=== PATIENT | female | born 1970 | race Caucasian/White ===

== ENCOUNTER 2016-12-03 08:04 | Outpatient (CLI) ==
--- NOTE | 2016-12-03 13:54 | MRI ---
EXAM: Cervical spine MRI without contrast. HISTORY: Neck pain. COMPARISON: Cervical spine radiographs 12/17/2010. TECHNIQUE: Multiplanar, multisequence MR images were acquired of the cervical spine without contras t. FINDINGS: The cerebellar tonsils extend to the foramen magnum without overt ectopia. The cervical cord has normal signal intensity. There is minor mid cervical levoscoliosis centered at C5-[address] raightening of the usual cervical lordosis. The cervical vertebra are normal in height and intrinsi c bone marrow signal. There is ventral spondylosis at C4-5 and C5-6. There is a small polyp arisin g from the posterior right inferior turbinate. The visualized maxillary sinuses and sphenoid sinus are unremarkable. There are no paravertebral masses. Visualized lung apices are clear. C2-3: The intervertebral disc is normal. C3-4: The intervertebral disc is normal. C4-5: There is a mild disc bulge and right uncovertebral hypertrophy that minimally narrows the rig ht neural foramen. There is no central canal stenosis. C5-6: There is a dorsal spondylotic ridge with a tiny right paracentral disc protrusion and annular fissure that minimally indents the right ventral cervical cord. Bilateral uncovertebral hypertroph y is present and there is minor left and mild right neural foraminal stenosis. There is no central canal stenosis. C6-7: There is a minor posterior disc osteophyte complex with a small broad-based left paracentral disc protrusion that mildly indents the left ventral cervical cord. Ligamentum flavum hypertrophy a nd left uncovertebral hypertrophy are present. There is mild spinal stenosis and minor left neural foraminal stenosis. AP diameter of the thecal sac is 8.3 mm. C7-T1: There is a minor dorsal spondylotic ridge with a small central disc extrusion that is slight ly asymmetric to the right. This mildly effaces the ventral thecal sac without spinal stenosis. IMPRESSION: 1. Mild cervical degenerative spondylosis which causes mild spinal stenosis at C6-7. 2. Mild dorsal spondylotic ridge C5-6 that is asymmetric to the right with tiny right paracentral d isc protrusion that minimally indents the right cervical cord without edema. 3. Small left paracentral disc protrusion C6-7 that indents the left ventral cervical cord. 4. Small central disc extrusion C7-T1.
== END 2016-12-03 08:05 | disposition home or self-care (01) ==
LOC: RAD 08:04
PROVIDERS: ATTEND Emergency Medicine
DX: M54.2 Cervicalgia (principal)

== ENCOUNTER 2017-02-11 09:47 | Outpatient (CLI) ==
[2017-02-11 10:10] LABS: BASOPHILS # (AUTO) 0.1 K/uL (0-0.2); BASOPHILS % (AUTO) 1.1 % (0.0-3.0); EOSINOPHILS # (AUTO) 0.4 K/ul (0.0-0.7); EOSINOPHILS % (AUTO) 7.4 % (0.0-7.0); HEMATOCRIT 32.8 % (37.0-47.0); HEMOGLOBIN 10.3 g/dl (12.0-16.0); IMMATURE GRANULOCYTE % (AUTO) 0.2 % (0.0-5.0); LYMPHOCYTES % (AUTO) 18.7 (10.0-50.0); MEAN CORPUSCULAR HEMOGLOBIN 26.9 pg (27.0-31.0); MEAN CORPUSCULAR HGB CONC 31.4 (31.8-35.4); MEAN CORPUSCULAR VOLUME 85.6 fl (81.0-99.0); MONOCYTES # (AUTO) 0.5 K/uL (0.4-2.0); NEUTROPHILS # (AUTO) 3.5 K/ul (2.0-6.9); NEUTROPHILS % (AUTO) 63.6; PLATELET COUNT 363 10^3/uL (140-440); RED BLOOD COUNT 3.83 10^6/ul (4.20-5.40); WHITE BLOOD COUNT 5.56 K/ul (4.6-10.2)
[2017-02-11 10:51] LABS: ALBUMIN 3.7 g/dL (3.4-5.0); ALBUMIN/GLOBULIN RATIO 0.93; BILIRUBIN,TOTAL 0.17 mg/dL (0.00-1.20); BUN/CREATININE RATIO 8.95; CALCIUM 9.5 mg/dL (8.2-10.2); CHOL/HDL RATIO 4.8 (4.5-5.5); CREATININE 0.67 mg/dL (0.60-1.30); TOTAL PROTEIN 7.7 g/dL (6.4-8.2)
== END 2017-02-11 09:48 | disposition home or self-care (01) ==
LOC: LAB 09:47
PROVIDERS: ATTEND Internal Medicine
DX: D64.9 Anemia, unspecified (principal); E66.9 Obesity, unspecified; Z82.49 Family history of ischemic heart disease and other diseases of the circulatory system
CPT/HCPCS: 36415; 80053; 80061; 82306; 83036; 84439; 84443; 85025

== ENCOUNTER 2017-02-15 16:43 | Outpatient (CLI) ==
[2017-02-15 17:01] LABS: BASOPHILS # (AUTO) 0.1 K/uL (0-0.2); EOSINOPHILS # (AUTO) 0.4 K/ul (0.0-0.7); EOSINOPHILS % (AUTO) 6.3 % (0.0-7.0); HEMATOCRIT 31.7 % (37.0-47.0); HEMOGLOBIN 10.1 g/dl (12.0-16.0); IMMATURE GRANULOCYTE % (AUTO) 0.9 % (0.0-5.0); IMMATURE RETIC FRACTION 21.6; LYMPHOCYTES # (AUTO) 1.5 K/uL (0.60-3.4); LYMPHOCYTES % (AUTO) 25.6 (10.0-50.0); MEAN CORPUSCULAR HEMOGLOBIN 27.2 pg (27.0-31.0); MEAN CORPUSCULAR HGB CONC 31.9 (31.8-35.4); MEAN CORPUSCULAR VOLUME 85.2 fl (81.0-99.0); MONOCYTES # (AUTO) 0.6 K/uL (0.4-2.0); MONOCYTES % (AUTO) 9.7 (0-10); NEUTROPHILS # (AUTO) 3.3 K/ul (2.0-6.9); NEUTROPHILS % (AUTO) 56.5; PLATELET COUNT 433 10^3/uL (140-440); RED BLOOD COUNT 3.72 10^6/ul (4.20-5.40); RETICULOCYTE % 1.74 %; WHITE BLOOD COUNT 5.87 K/ul (4.6-10.2)
[2017-02-15 17:49] LABS: FERRITIN 5.55 ng/mL (4.63-204.00)
[2017-02-15 18:38] LABS: FOLATE 33.1 ng/mL (3.1-20.5)
== END 2017-02-15 16:44 | disposition home or self-care (01) ==
LOC: LAB 16:43
PROVIDERS: ATTEND Internal Medicine
DX: D64.9 Anemia, unspecified (principal)
CPT/HCPCS: 36415; 82607; 82728; 82746; 83540; 83550; 85025; 85045

== ENCOUNTER 2017-02-16 06:47 | Outpatient (CLI) ==
--- NOTE | 2017-02-17 10:19 | ECHO2D ---
Date of Exam: 02/16/17 Ordering Physician: AUDREY DE LA ROSA Reason for Echo: SOB, SINUS TACH M-Mode Normal Adult Results LV Dimensions Normal Adult Results AoV Opening excursions >1.6 >1.6 LVEDD-base- 3.5-5.8 3.8 Ao root dimensions 2.0-3.7 2.7 LVESD-base- 3.1-4.6 L. Atrium dimensions 1.9-3.8 2.8 Post. Wall thickness 0.8-1.1 1.0 IV septum (thickness) 0.7-1.2 0.9 Post. Wall excursion 0.72-1.3 NORMAL Septal motion NORMAL Systolic motion R. Ventricular cavity 1.5-2.0 NORMAL LVEF 60% 63% Paradoxical septal wall motion NORMAL 2-D : MITRAL VALVE PROLAPSE NOTED ON LEFT PARASTERNAL LONG AXIS AND APICAL FOUR CHAMBER VIEW--NORMAL LEFT VENTRICLE CONTRACTILITY--NO EFFUSION, NO THROMBUS, NORMAL LEFT VENTRICLE SIZE AND LEFT ATRIAL SIZE DOPPLER WITH COLOR FLOW: NO MITRAL REGURGITATION M-MODE: MV: LATE SYSTOLIC MITRAL VALVE PROLAPSE AV: NORMAL TV: NORMAL PV: CHAMBER SIZE: NORMAL WALL MOTION: NORMAL PERICARDIUM: NORMAL INTERPRETATION: 1. LATE SYSTOLIC MITRAL VALVE PROLAPSE WITH NO EVIDENCE OF MITRAL REGURGITATION 2. NORMAL LEFT VENTRICULAR CONTRACTILITY 3. NORMAL LEFT VENTRICLE AND LEFT ATRIAL SIZE MTDD
== END 2017-02-16 06:48 | disposition home or self-care (01) ==
LOC: CAR 06:47
PROVIDERS: ATTEND Internal Medicine
DX: R06.02 Shortness of breath (principal); R00.0 Tachycardia, unspecified

== ENCOUNTER 2017-02-22 14:48 | Outpatient (CLI) ==
[2017-02-22 14:59] LABS: BASOPHILS # (AUTO) 0.1 K/uL (0-0.2); BASOPHILS % (AUTO) 0.8 % (0.0-3.0); EOSINOPHILS # (AUTO) 0.4 K/ul (0.0-0.7); HEMATOCRIT 32.1 % (37.0-47.0); HEMOGLOBIN 10.3 g/dl (12.0-16.0); IMMATURE GRANULOCYTE % (AUTO) 0.2 % (0.0-5.0); LYMPHOCYTES # (AUTO) 1.3 K/uL (0.60-3.4); LYMPHOCYTES % (AUTO) 21.2 (10.0-50.0); MEAN CORPUSCULAR HEMOGLOBIN 27.7 pg (27.0-31.0); MEAN CORPUSCULAR HGB CONC 32.1 (31.8-35.4); MEAN CORPUSCULAR VOLUME 86.3 fl (81.0-99.0); MONOCYTES # (AUTO) 0.5 K/uL (0.4-2.0); MONOCYTES % (AUTO) 8.8 (0-10); NEUTROPHILS # (AUTO) 3.9 K/ul (2.0-6.9); PLATELET COUNT 441 10^3/uL (140-440); RED BLOOD COUNT 3.72 10^6/ul (4.20-5.40); WHITE BLOOD COUNT 6.17 K/ul (4.6-10.2)
== END 2017-02-22 14:49 | disposition home or self-care (01) ==
LOC: LAB 14:48
PROVIDERS: ATTEND Internal Medicine
DX: D64.9 Anemia, unspecified (principal)
CPT/HCPCS: 36415; 85025

== ENCOUNTER 2017-03-01 11:05 | Outpatient (CLI) ==
[2017-03-01 11:13] LABS: BASOPHILS # (AUTO) 0.1 K/uL (0-0.2); BASOPHILS % (AUTO) 0.9 % (0.0-3.0); EOSINOPHILS # (AUTO) 0.3 K/ul (0.0-0.7); EOSINOPHILS % (AUTO) 5.7 % (0.0-7.0); HEMOGLOBIN 10.8 g/dl (12.0-16.0); IMMATURE GRANULOCYTE % (AUTO) 0.6 % (0.0-5.0); LYMPHOCYTES % (AUTO) 18.3 (10.0-50.0); MEAN CORPUSCULAR HEMOGLOBIN 28.4 pg (27.0-31.0); MEAN CORPUSCULAR HGB CONC 31.8 (31.8-35.4); MEAN CORPUSCULAR VOLUME 89.5 fl (81.0-99.0); MONOCYTES # (AUTO) 0.5 K/uL (0.4-2.0); MONOCYTES % (AUTO) 8.4 (0-10); NEUTROPHILS # (AUTO) 3.6 K/ul (2.0-6.9); NEUTROPHILS % (AUTO) 66.1; PLATELET COUNT 314 10^3/uL (140-440); WHITE BLOOD COUNT 5.45 K/ul (4.6-10.2)
== END 2017-03-01 11:06 | disposition home or self-care (01) ==
LOC: LAB 11:05
PROVIDERS: ATTEND Internal Medicine
DX: D64.9 Anemia, unspecified (principal)
CPT/HCPCS: 36415; 85025

== ENCOUNTER 2017-03-08 13:39 | Outpatient (CLI) ==
[2017-03-08 13:57] LABS: BASOPHILS # (AUTO) 0.1 K/uL (0-0.2); BASOPHILS % (AUTO) 0.6 % (0.0-3.0); EOSINOPHILS # (AUTO) 0.5 K/ul (0.0-0.7); EOSINOPHILS % (AUTO) 6.3 % (0.0-7.0); HEMATOCRIT 35.1 % (37.0-47.0); HEMOGLOBIN 11.5 g/dl (12.0-16.0); IMMATURE GRANULOCYTE % (AUTO) 0.2 % (0.0-5.0); LYMPHOCYTES # (AUTO) 1.3 K/uL (0.60-3.4); LYMPHOCYTES % (AUTO) 15.6 (10.0-50.0); MEAN CORPUSCULAR HEMOGLOBIN 29.3 pg (27.0-31.0); MEAN CORPUSCULAR HGB CONC 32.8 (31.8-35.4); MEAN CORPUSCULAR VOLUME 89.3 fl (81.0-99.0); MONOCYTES # (AUTO) 0.6 K/uL (0.4-2.0); MONOCYTES % (AUTO) 6.9 (0-10); NEUTROPHILS # (AUTO) 5.7 K/ul (2.0-6.9); NEUTROPHILS % (AUTO) 70.4; PLATELET COUNT 275 10^3/uL (140-440); RED BLOOD COUNT 3.93 10^6/ul (4.20-5.40); WHITE BLOOD COUNT 8.08 K/ul (4.6-10.2)
== END 2017-03-08 13:40 | disposition home or self-care (01) ==
LOC: LAB 13:39
PROVIDERS: ATTEND Internal Medicine
DX: D64.9 Anemia, unspecified (principal)
CPT/HCPCS: 36415; 85025

== ENCOUNTER 2017-03-15 09:57 | Outpatient (CLI) ==
[2017-03-15 10:07] LABS: BASOPHILS # (AUTO) 0.1 K/uL (0-0.2); EOSINOPHILS # (AUTO) 0.3 K/ul (0.0-0.7); HEMATOCRIT 31.7 % (37.0-47.0); HEMOGLOBIN 10.4 g/dl (12.0-16.0); IMMATURE GRANULOCYTE % (AUTO) 0.5 % (0.0-5.0); LYMPHOCYTES # (AUTO) 1.1 K/uL (0.60-3.4); LYMPHOCYTES % (AUTO) 17.4 (10.0-50.0); MEAN CORPUSCULAR HEMOGLOBIN 29.4 pg (27.0-31.0); MEAN CORPUSCULAR HGB CONC 32.8 (31.8-35.4); MEAN CORPUSCULAR VOLUME 89.5 fl (81.0-99.0); MONOCYTES # (AUTO) 0.6 K/uL (0.4-2.0); MONOCYTES % (AUTO) 9.2 (0-10); NEUTROPHILS # (AUTO) 4.2 K/ul (2.0-6.9); NEUTROPHILS % (AUTO) 66.9; PLATELET COUNT 308 10^3/uL (140-440); RED BLOOD COUNT 3.54 10^6/ul (4.20-5.40); WHITE BLOOD COUNT 6.21 K/ul (4.6-10.2)
== END 2017-03-15 09:58 | disposition home or self-care (01) ==
LOC: LAB 09:57
PROVIDERS: ATTEND Internal Medicine
DX: D64.9 Anemia, unspecified (principal)
CPT/HCPCS: 36415; 85025

== ENCOUNTER 2017-05-10 10:52 | Outpatient (CLI) ==
[2017-05-10 11:11] LABS: BASOPHILS % (AUTO) 0.6 % (0.0-3.0); EOSINOPHILS # (AUTO) 0.3 K/ul (0.0-0.7); HEMATOCRIT 41.4 % (37.0-47.0); HEMOGLOBIN 13.7 g/dl (12.0-16.0); IMMATURE GRANULOCYTE % (AUTO) 0.3 % (0.0-5.0); LYMPHOCYTES % (AUTO) 15.7 (10.0-50.0); MEAN CORPUSCULAR HEMOGLOBIN 30.5 pg (27.0-31.0); MEAN CORPUSCULAR HGB CONC 33.1 (31.8-35.4); MEAN CORPUSCULAR VOLUME 92.2 fl (81.0-99.0); MONOCYTES # (AUTO) 0.5 K/uL (0.4-2.0); MONOCYTES % (AUTO) 7.6 (0-10); NEUTROPHILS # (AUTO) 4.5 K/ul (2.0-6.9); NEUTROPHILS % (AUTO) 71.8; PLATELET COUNT 297 10^3/uL (140-440); RED BLOOD COUNT 4.49 10^6/ul (4.20-5.40); WHITE BLOOD COUNT 6.32 K/ul (4.6-10.2)
[2017-05-10 11:52] LABS: ALBUMIN 3.8 g/dL (3.4-5.0); ALBUMIN/GLOBULIN RATIO 0.93; ANION GAP 11.7; BILIRUBIN,TOTAL 0.31 mg/dL (0.00-1.20); BUN/CREATININE RATIO 10.44; CHOL/HDL RATIO 3.8 (4.5-5.5); CREATININE 0.67 mg/dL (0.60-1.30); POTASSIUM 3.7 mmol/L (3.5-5.10); TOTAL PROTEIN 7.9 g/dL (6.4-8.2)
[2017-05-10 12:40] LABS: ERYTHROCYTE SEDIMENTATION RATE 39 mm/hr (0-20); ESR INTERNAL QC INTERNAL QC VALID
== END 2017-05-10 10:53 | disposition home or self-care (01) ==
LOC: LAB 10:52
PROVIDERS: ATTEND Internal Medicine
DX: F41.9 Anxiety disorder, unspecified (principal); E78.5 Hyperlipidemia, unspecified; I34.1 Nonrheumatic mitral (valve) prolapse
CPT/HCPCS: 36415; 80053; 80061; 84439; 84443; 85025; 85651; 86038

== ENCOUNTER 2017-05-22 12:39 | Emergency (ER) ==
[2017-05-22 12:45] VITALS: BP 134/85; TEMP 98.9; BMI 27.8
--- NOTE | 2017-05-22 13:08 | ED.PDOC ---
General ED Provider: Dr. NIDIA GALICIA Chief Complaint: Hypertension Stated Complaint: Here for BP check, requiring an ED encounter. No complaints. Time Seen by Physician: 13:05 Mode of Arrival: Walk-In Information Source: Patient Exam Limitations: No limitations Primary Care Provider: AUDREY DE LA ROSA Nursing and Triage Documentation Reviewed and Agree: Yes Cardiovascular Complaint Exam - Hypertension Complaint/Exam Onset/Duration: N/A Symptoms Are: Resolved (Asymptomatic) Timing: Constant Reported B/P Prior to Arrival: 135/90 a couple weeks ago. Doewn'y have a home BP measuring device. Aggravating: Reports: Exertion Alleviating: Reports: Rest Associated Signs and Symptoms: Denies: Chest pain, Vision changes, Anxiety, Recent stress, Headache, Numbness, Tingling, Weakness, Dizziness, Short of air, Swelling Related History: Denies: Current Santosh Inhibitors, Current ARBs, Current Beta Florina, Current Ca [place].Florina, Current Diuretic, Rx noncompliance Related Surgical History: Reports: None Recent Change in Medications: No A/V Nicking: No Papilledema Present: No JVD Present: No Carotid Bruit Present: No Femoral Pulses Bounding: No Differential Diagnoses: Hypertension Review of Systems - Review Of Systems Constitutional: Reports: No symptoms Eyes: Reports: No symptoms Ears, Nose, Mouth, Throat: Reports: No symptoms Respiratory: Reports: No symptoms Cardiac: Reports: No symptoms GI: Reports: No symptoms : Reports: No symptoms Musculoskeletal: Reports: No symptoms Skin: Reports: No symptoms Neurological: Reports: No symptoms Endocrine: Reports: No symptoms Hematologic/Lymphatic: Reports: No symptoms All Other Systems: Reviewed and Negative Past Medical History - Past Medical History Previously Healthy: Yes Endocrine: Reports: None Cardiovascular: Reports: None Respiratory: Reports: None Hematological: Reports: None Gastrointestinal: Reports: None Genitourinary: Reports: None Neuro/Psych: Reports: None Musculoskeletal: Reports: None Cancer: Reports: None Last Menstrual Period: 05/11/17 - Surgical History General Surgical History: Reports: None - Family History Family History: Reports: Unknown - Social History Smoking Status: Never smoker Hx Substance Use: No Alcohol Screening: None Lives: With family - Immunizations Tetanus Shot up to Date: No Influenza Vaccine within 12 Months: No Pneumococcal Vaccine up to Date: No Physical Exam - Physical Exam Appearance: Well-appearing, No pain distress, Well-nourished Ill-appearing: None Pain Distress: None Eyes: MARIA VICTORIA, EOMI, Conjunctiva clear ENT: Ears normal, Nose normal, Oropharynx normal Respiratory: Airway patent, Breath sounds clear, Breath sounds equal, Respirations nonlabored Cardiovascular: RRR, Pulses normal, No rub, No murmur GI/: Soft, Nontender, No masses, Bowel sounds normal, No Organomegaly Musculoskeletal: Normal strength, ROM intact, No edema, No calf tenderness Skin: Warm, Dry, Normal color Neurological: Sensation intact, Motor intact, Reflexes intact, Cranial nerves intact, Alert, Oriented Psychiatric: Affect appropriate, Mood appropriate Critical Care Note - Critical Care Note Total Time (mins): 0 Course - Course Vital Signs: Temp Pulse Resp BP Pulse Ox 05/22/17 12:40 98.9 F 80 16 134/85 97 CASEY Risk Score CASEY Risk Score: Risk Score Odds of by 30D 0 0.1 (0.1-0.2) 1 0.3 (0.2-0.3) 2 0.4 (0.3-0.5) 3 0.7 (0.6-0.9) 4 1.2 (1.0-1.5) 5 2.2 (1.9-2.6) 6 3.0 (2.5-3.6) 7 4.8 (3.8-6.1) Departure - Departure Time of Disposition: 13:11 Disposition: HOME SELF-CARE Discharge Problem: Normotensive Instructions: Normal Exam (ED) Condition: Good Pt referred to PMD for follow-up: No (Follow up with own doctor for recheck of BP) Additional Instructions: A home automated BP cuff is recommended. Allergies/Adverse Reactions: Allergies metoprolol [From Lopressor] Adverse Reaction (Verified 05/22/17 12:45) Anaphylaxis Home Medications: Ambulatory Orders Alprazolam [Xanax] 0.25 mg PO TID 05/22/17 Disposition Discussed With: Patient
== END 2017-05-22 13:16 | disposition home or self-care (01) ==
LOC: ED 12:39
DX: Z71.1 Person with feared health complaint in whom no diagnosis is made (principal)
CPT/HCPCS: 99281

== ENCOUNTER 2017-07-12 09:50 | Outpatient (CLI) ==
[2017-07-12 10:07] LABS: BASOPHILS # (AUTO) 0.1 K/uL (0-0.2); BASOPHILS % (AUTO) 0.8 % (0.0-3.0); EOSINOPHILS # (AUTO) 0.3 K/ul (0.0-0.7); EOSINOPHILS % (AUTO) 4.2 % (0.0-7.0); HEMATOCRIT 37.5 % (37.0-47.0); HEMOGLOBIN 12.5 g/dl (12.0-16.0); IMMATURE GRANULOCYTE % (AUTO) 0.3 % (0.0-5.0); LYMPHOCYTES # (AUTO) 1.1 K/uL (0.60-3.4); LYMPHOCYTES % (AUTO) 17.5 (10.0-50.0); MEAN CORPUSCULAR HEMOGLOBIN 31.1 pg (27.0-31.0); MEAN CORPUSCULAR HGB CONC 33.3 (31.8-35.4); MEAN CORPUSCULAR VOLUME 93.3 fl (81.0-99.0); MONOCYTES # (AUTO) 0.5 K/uL (0.4-2.0); MONOCYTES % (AUTO) 8.4 (0-10); NEUTROPHILS # (AUTO) 4.4 K/ul (2.0-6.9); NEUTROPHILS % (AUTO) 68.8; PLATELET COUNT 331 10^3/uL (140-440); RED BLOOD COUNT 4.02 10^6/ul (4.20-5.40); WHITE BLOOD COUNT 6.45 K/ul (4.6-10.2)
[2017-07-12 10:44] LABS: ALBUMIN 3.7 g/dL (3.4-5.0); ALBUMIN/GLOBULIN RATIO 0.95; ANION GAP 12.8; BILIRUBIN,TOTAL 0.28 mg/dL (0.00-1.20); BUN/CREATININE RATIO 10.6; CHOL/HDL RATIO 3.9 (4.5-5.5); CREATININE 0.66 mg/dL (0.60-1.30); POTASSIUM 3.8 mmol/L (3.5-5.10); TOTAL PROTEIN 7.6 g/dL (6.4-8.2)
== END 2017-07-12 09:51 | disposition home or self-care (01) ==
LOC: LAB 09:50
PROVIDERS: ATTEND Internal Medicine
DX: D64.9 Anemia, unspecified (principal); E78.5 Hyperlipidemia, unspecified; K21.9 Gastro-esophageal reflux disease without esophagitis
CPT/HCPCS: 36415; 80053; 80061; 83036; 84443; 85025

== ENCOUNTER 2017-07-13 08:54 | Outpatient (CLI) ==
--- NOTE | 2017-07-13 09:20 | DI ---
Exam: Two x-rays of the chest. Comparison: 01/12/2011. Reason for exam: Cough. FINDINGS: No pneumothorax, pleural effusion, or focal consolidation. The cardiac silhouette is not enlarged. The imaged osseous structures appear grossly unremarkable without acute fracture. Impression: No acute cardiopulmonary process.
== END 2017-07-13 08:55 | disposition home or self-care (01) ==
LOC: RAD 08:54
PROVIDERS: ATTEND Internal Medicine
DX: R59.1 Generalized enlarged lymph nodes (principal); R05 Cough

== ENCOUNTER 2017-07-16 09:10 | Outpatient (CLI) ==
--- NOTE | 2017-07-16 10:20 | US ---
EXAM: Bilateral axillary ultrasound HISTORY: Axillary lymphadenopathy which is waxing and waning. COMPARISON: Mammogram 05/10/2017 FINDINGS: The right axilla demonstrates a lymph node with fatty hilum measuring 2.6 x 1.0 x 2.3 cm. There are a left axillary lymph nodes measuring 1.7 x 1.0 x 1.6 cm. There is a 1.0 x 0.5 x 0.9 cm ly mph node. The largest lymph node measures 2.7 x 1.0 x 3.5 cm with a fatty hilum. IMPRESSION: Nonspecific bilateral enlarged lymph nodes with central fatty hilum. These may be react gabriela. And prominent lymph nodes are noted on mammogram 05/10/2017.
== END 2017-07-16 09:11 | disposition home or self-care (01) ==
LOC: RAD 09:10
PROVIDERS: ATTEND Internal Medicine
DX: R59.0 Localized enlarged lymph nodes (principal); R05 Cough; N64.4 Mastodynia; N63.0 Unspecified lump in unspecified breast
CPT/HCPCS: 76882

== ENCOUNTER 2017-07-19 10:23 | Outpatient (CLI) ==
[2017-07-19 11:17] LABS: BASOPHILS % (AUTO) 0.8 % (0.0-3.0); EOSINOPHILS # (AUTO) 0.2 K/ul (0.0-0.7); EOSINOPHILS % (AUTO) 3.9 % (0.0-7.0); HEMATOCRIT 36.9 % (37.0-47.0); HEMOGLOBIN 12.4 g/dl (12.0-16.0); IMMATURE GRANULOCYTE % (AUTO) 0.2 % (0.0-5.0); LYMPHOCYTES % (AUTO) 18.4 (10.0-50.0); MEAN CORPUSCULAR HEMOGLOBIN 31.2 pg (27.0-31.0); MEAN CORPUSCULAR HGB CONC 33.6 (31.8-35.4); MEAN CORPUSCULAR VOLUME 92.9 fl (81.0-99.0); MONOCYTES # (AUTO) 0.5 K/uL (0.4-2.0); MONOCYTES % (AUTO) 9.4 (0-10); NEUTROPHILS # (AUTO) 3.6 K/ul (2.0-6.9); NEUTROPHILS % (AUTO) 67.3; PLATELET COUNT 303 10^3/uL (140-440); RED BLOOD COUNT 3.97 10^6/ul (4.20-5.40); WHITE BLOOD COUNT 5.32 K/ul (4.6-10.2)
[2017-07-19 11:41] LABS: ALBUMIN 4.1 g/dL (3.4-5.0); ALBUMIN/GLOBULIN RATIO 0.98; BILIRUBIN,TOTAL 0.4 mg/dL (0.00-1.20); BUN/CREATININE RATIO 14.92; CALCIUM 9.6 mg/dL (8.2-10.2); CREATININE 0.67 mg/dL (0.60-1.30); TOTAL PROTEIN 8.3 g/dL (6.4-8.2); URIC ACID 3.6 mg/dL (2.4-6.0)
[2017-07-19 11:52] LABS: ERYTHROCYTE SEDIMENTATION RATE 28 mm/hr (0-20); ESR INTERNAL QC INTERNAL QC VALID
== END 2017-07-19 10:24 | disposition home or self-care (01) ==
LOC: LAB 10:23
PROVIDERS: ATTEND Internal Medicine
DX: R59.1 Generalized enlarged lymph nodes (principal)
CPT/HCPCS: 36415; 80053; 83615; 84100; 84550; 85025; 85651; 86644; 86663; 87471

== ENCOUNTER 2017-07-20 09:14 | Day surgery (SDC) ==
[2017-07-20] MEDS ORDERED: LIDOCAINE 1% 20 ML MDV ID STA (09:48)
[2017-07-20] MEDS ORDERED: VERSED ONE (11:15)
[2017-07-20] MEDS ORDERED: DIPRIVAN 20 ML VIAL IVP ONE (11:15)
[2017-07-20 12:15] VITALS: BP 132/81; TEMP 98.1
--- NOTE | 2017-07-21 09:00 | OP ---
INDICATIONS FOR PROCEDURE: 46-year-old female complaining of intermittent bright red blood per rectum. She noticed some bright red blood on the tissue paper that occurs with bowel movement. MEDICATIONS: SEE ANESTHESIA NOTES. PROCEDURE: COLONOSCOPY. REPORT: The risks, benefits, alternatives and limitations were discussed in detail with the patient. Informed consent was obtained. After adequate sedation was achieved, a digital rectal exam revealed good tone, no masses. The colonoscope was introduced into the rectum and advanced under direct visual guidance to the cecum. The cecum was identified by the appendiceal orifice and IC valve. I then slowly withdrew the scope in circumferential manner examining the mucosa quite carefully. I looked on the proximal and distal side of folds and flexures as best as possible. I was able to retroflex the scope in the right colon and left colon to increase visualization. The colonic mucosa was unremarkable its entire length including on retroflex view of the anal canal. The prep was good. The withdrawal time was 6 minutes and 20 seconds. The patient tolerated the procedure well with stable vital signs and pulse oximetry throughout. IMPRESSION: 1. NORMAL COLONOSCOPY EXAM RECOMMENDATIONS: 1. High fiber diet. I have suggested a fiber supplement to her. 2. Office visit as needed. 3. Colonoscopy examination again for screening purposes in 10 years. 4. Office visit as needed. CC: DR. DIONICIO DODD
== END 2017-07-20 12:30 | disposition home or self-care (01) ==
LOC: SURG 09:14
PROVIDERS: ATTEND Internal Medicine Gastroenterology
DX: K62.5 Hemorrhage of anus and rectum (principal)

== ENCOUNTER 2017-11-29 12:39 | Outpatient (CLI) | END 2017-11-29 12:40 | disposition home or self-care (01) | LOC: LAB 12:39 | PROVIDERS: ATTEND Internal Medicine | DX: D64.9 Anemia, unspecified (principal); E78.5 Hyperlipidemia, unspecified; K21.9 Gastro-esophageal reflux disease without esophagitis; I34.1 Nonrheumatic mitral (valve) prolapse | CPT/HCPCS: 36415; 80053; 80061; 82607; 83036; 84443; 85025 ==

== ENCOUNTER 2018-05-23 10:12 | Outpatient (CLI) | END 2018-05-23 10:13 | disposition home or self-care (01) | LOC: LAB 10:12 | PROVIDERS: ATTEND Internal Medicine | DX: E78.5 Hyperlipidemia, unspecified (principal); D64.9 Anemia, unspecified; M79.7 Fibromyalgia; I34.1 Nonrheumatic mitral (valve) prolapse | CPT/HCPCS: 36415; 80053; 80061; 83036; 84443; 85025 ==

== ENCOUNTER 2018-12-03 06:52 | Emergency (ER) ==
[2018-12-03 06:57] VITALS: BP 133/89; TEMP 97; BMI 29.1
[2018-12-03] MEDS ORDERED: TORADOL IM STA (07:41)
[2018-12-03] MEDS ORDERED: PHENERGAN TAB PO STA (07:45)
--- NOTE | 2018-12-03 07:58 | ED.PDOC ---
General ED Provider: Dr. RENA FLOOD Chief Complaint: Tooth Problem Stated Complaint: Severe Tooth Pain, Has a root canal preformed on this past by Dr Pearson. Not available for follow up today.Worried about infection. Pain traveling from upper rt maxilla into facial region. No LOC, n-v , neg fever, chills or night sweats Time Seen by Physician: 08:35 Mode of Arrival: Walk-In Information Source: Patient Exam Limitations: No limitations Primary Care Provider: AUDREY DE LA ROSA Nursing and Triage Documentation Reviewed and Agree: Yes Does patient meet sepsis criteria?: No System Inflammatory Response Syndrome: Not Applicable Sepsis Protocol: For patient's 13 years and over: Temp is 96.8 and below OR 101 and greater Pulse >90 BPM Resp >20/minute Acutely Altered Mental Status Are patient's symptoms suggestive of a new infection, such as: -Pneumonia -Skin, Soft Tissue -Endocarditis -UTI -Bone, Joint Infection -Implantable Device -Acute Abdominal Infection -Wound Infection -Meningitis -Blood Stream Catheter Infection -Unknown EENT Complaint Exam - Dental/Oral Complaint/Exam Mechanism of Injury: No known trauma Onset/Duration: 24 hrs Symptoms Are: Still present Timing: Constant Initial Severity: Moderate Current Severity: Moderate Location: Rt UPPER GUM LINE Character: Reports: Aching Aggravating: Reports: Chewing Alleviating: Reports: None Associated Signs and Symptoms: Reports: Swelling. Denies: Discharge, Fever, Foul odor, Foul taste in mouth Related History: Denies: Similar episode Cardiac Risk Factors: Reports: None Dental/Oral Surgical History: Reports: None Tooth Findings: Present: Percussion tenderness Cervical Lymphadenopathy Present: No Facial Swelling Present: No Bleeding Present: No Oropharynx Findings: Absent: Clots, Active bleeding Septal Hematoma: No Foreign Body Present: No Dysphagia Present: No Drooling Present: No Asymmetrical Tonsillar Swelling Present: No Uvula Midline: No Natasha-tonsillar Fluctuence: No Trismus Present: No Palatal Petechiae Present: No Scarlatinaform Rash Present: No Lesions: Absent: Lip, Gums, Pharynx Exanthem: Absent: Lip, Gums, Pharynx Vesicles: Absent: Gums, Pharynx Differential Diagnoses: Dental Abcess, Other (Dry Socket) Review of Systems - Review Of Systems Constitutional: Reports: No symptoms Eyes: Reports: No symptoms Ears, Nose, Mouth, Throat: Reports: No symptoms Respiratory: Reports: No symptoms Cardiac: Reports: No symptoms GI: Reports: No symptoms : Reports: No symptoms Musculoskeletal: Reports: No symptoms Skin: Reports: No symptoms Neurological: Reports: No symptoms Endocrine: Reports: No symptoms Hematologic/Lymphatic: Reports: No symptoms All Other Systems: Reviewed and Negative Past Medical History - Past Medical History Previously Healthy: Yes Endocrine: Reports: None Cardiovascular: Reports: None Respiratory: Reports: None Hematological: Reports: None Gastrointestinal: Reports: None Genitourinary: Reports: None Neuro/Psych: Reports: None Musculoskeletal: Reports: None Cancer: Reports: None Last Menstrual Period: 1.5 weeks ago - Surgical History General Surgical History: Reports: None - Family History Family History: Reports: Unknown - Social History Smoking Status: Never smoker Hx Substance Use: No Alcohol Screening: None - Immunizations Influenza Vaccine within 12 Months: No Pneumococcal Vaccine up to Date: No Physical Exam - Physical Exam Appearance: Well-appearing, No pain distress, Well-nourished Eyes: MARIA VICTORIA, EOMI, Conjunctiva clear ENT: Ears normal, Nose normal, Oropharynx normal, Erythema, Dry mucosa Respiratory: Airway patent, Breath sounds clear, Breath sounds equal, Respirations nonlabored Cardiovascular: RRR, Pulses normal, No rub, No murmur GI/: Soft, Nontender, No masses, Bowel sounds normal, No Organomegaly Musculoskeletal: Normal strength, ROM intact, No edema, No calf tenderness Skin: Warm, Dry, Normal color Neurological: Sensation intact, Motor intact, Reflexes intact, Cranial nerves intact, Alert, Oriented Psychiatric: Affect appropriate, Mood appropriate Interpretation - Radiology Interpretation Radiology Interpretation By: Radiologist (No abscess-prev root canal at site specified) Radiology Results: Negative Exam Interpreted: CT Scan Critical Care Note - Critical Care Note Total Time (mins): 0 Course - Course Vital Signs: Temp Pulse Resp BP Pulse Ox 12/03/18 06:54 97.0 F L 96 H 20 133/89 97 Departure - Departure Time of Disposition: 08:23 Disposition: HOME SELF-CARE Discharge Problem: Pain, dental, History of root canal procedure Instructions: Toothache (ED), Root Canal (DC) Condition: Good Pt referred to PMD for follow-up: Yes (1wk) IPMP verified?: No (attempted -could not access) Additional Instructions: Rinse Mouth with Warm Salt water Avoid same side chewing Follow up with Dentist in next wk Take prescribed med for pain as needed. May take Tylenol 350 mg every 6 hrs as needed for additional pain Take antibiotics as directed Prescriptions: Cephalexin [Keflex] 500 mg PO BID #14 capsule Ketorolac Tromethamine [Toradol] 10 mg PO Q6H PRN #20 tablet PRN Reason: Pain Promethazine HCl [Phenergan Tab] 25 mg PO Q8H PRN #10 tablet PRN Reason: Nausea / Vomiting Allergies/Adverse Reactions: Allergies metoprolol [From Lopressor] Adverse Reaction (Verified 12/03/18 06:56) Anaphylaxis Home Medications: Ambulatory Orders Alprazolam [Xanax] 0.25 mg PO TID 05/22/17 Cephalexin [Keflex] 500 mg PO BID #14 capsule 12/03/18 Fluticasone Propionate [Flonase] 2 spray NS DAILY PRN 12/03/18 Ketorolac Tromethamine [Toradol] 10 mg PO Q6H PRN #20 tablet 12/03/18 Promethazine HCl [Phenergan Tab] 25 mg PO Q8H PRN #10 tablet 12/03/18 Disposition Discussed With: Patient
--- NOTE | 2018-12-03 08:03 | CT ---
EXAM: CT scan facial bones HISTORY: Right-sided dental pain, recent root canal COMPARISON: None. FINDINGS: Contiguous axial images were obtained through the facial bones without contrast utilizing 3-mm collimation. Sagittal and coronal reconstructions were imaged and reviewed.. Teeth are missing in all quadrants. Prior root canal is seen involving the right maxillary lateral incisor.. Visuali zed paranasal sinuses are clear. The orbital structures are intact. IMPRESSION: No acute findings
== END 2018-12-03 09:11 | disposition home or self-care (01) ==
LOC: ED 06:52
DX: K08.89 Other specified disorders of teeth and supporting structures (principal); Z98.818 Other dental procedure status
CPT/HCPCS: 96372; 99282

== ENCOUNTER 2018-12-16 11:20 | Outpatient (CLI) | END 2018-12-16 11:21 | disposition home or self-care (01) | LOC: LAB 11:20 | PROVIDERS: ATTEND Internal Medicine | DX: E78.5 Hyperlipidemia, unspecified (principal); Z79.899 Other long term (current) drug therapy; I10 Essential (primary) hypertension; I34.1 Nonrheumatic mitral (valve) prolapse | CPT/HCPCS: 36415; 80053; 80061; 82306; 82607; 84439; 84443; 85025 ==